=== PATIENT | female | born 1975 | race Caucasian/White ===

== ENCOUNTER 2017-01-10 11:18 | Emergency (ER) | payer SELFPAY ==
[~2017-01-10] VITALS: Ht 147.3 cm; Wt 64.9 kg
--- NOTE | 2017-01-10 11:50 | Urgent Treatment Center Report ---
History of Present Issue Date/Time Seen by Provider 01/10/17 1149 Visit Reason Pt arrived:Walked Presenting Problem:PT STATES NECK PAIN ON LEFT SIDE THAT RADIATES DOWN BACK AND INTO HEAD X1 WEEK. STATES HISTORY OF BULGING DISC TO NECK Location if Accident: Onset of symptoms date/time:/ or onset unknown for:MEDICAL HX UNKNOWN Have you (or family members/close friends) recently traveled outside the [facility]? N If Yes, where/when: Have you had exposure to infectious disease within the past month? TB? Other? Specify: c/o chronic neck pain. "feels like someone is going to sqeeze my head off". requesting refill of baclofen and tramadol. moved to [place] 2 weeks ago from [place]. Has not tried to establish primary care. Denies new symptoms and no new injury. "I already know what this is. I don't need you doing xrays. I have two disc pushing one way and another pushing the other way". pt reports she was being treated with ibuprofen 600mg, tramadol and baclofen prior to leaving [place]. Has ibuprofen at home "so I am not needing you to give me that". Has no baclofen or tramadol remaining. Has been without medication approx one week and pain worse "about that same amount of time". reporting "at one time they did epidurals but that didn't help". Reporting nothing helps but that and is not interested in any other treatment today. Source patient Exam Limitations clinical condition (pain) ALLERGIES Coded Allergies: No Known Allergies (01/10/17) History Medical History General CAD? No Angina: No OK: No Hypertension? No Hyperlipidemia? No CHF? No DVT? No PE? No COPD? No Asthma? No Anemia? No GERD? No Gastric ulcers? No GI Bleed? No Hernia? No Thyroid Problems? No Hypothyroidism? No CVA? No Seizures? No Diabetes? No Renal Insuffiency? No UTI? No Stones? No BPH? No GB Disease: No Nephritic Syndrome? No Asplenia? No Hepatitis? No Sickle Cell Disease? No Arthritis? Yes Migraines? No Cataracts? No Glaucoma? No MRSA? No HIV? No TB? No Anxiety? No Depression? No Cancer? No Immunization HX DT/Tetanus 1-4 Years Ago Surgical Hx Previous Surgery?Y [employer] Hx LMP Now Social History Smoking Hx Smoker: Current Every Day Smoker Tobacco: Yes Type Cigarettes Alcohol Alcohol: No Review of Systems All Other Systems Reviewed and Negative Constitutional denies fever, denies malaise Eyes denies blurred vision Cardiovascular denies chest pain Musculoskeletal see HPI, denies other (weakness in arms) Skin denies change in color, denies lesions, lumps ("knot on my neck"), denies rash Psychiatric/Neurological denies numbness, denies tingling Physical Exam Vital Signs Vital Signs Date Time Temp Pulse Resp B/P Pulse O2 O2 Flow FiO2 Ox Delivery Rate 01/10 1215 98.1 70 20 147/95 100 01/10 1134 98.1 70 20 147/95 100 General Appearance no apparent distress, dishelved appearance Neck supple, limited range of motion (all directions), marked tenderness with minimal palpation any area cervical spine and left side of neck, wincing, pulling away slightly, no sign of pain while distracted in conversation. Respiratory Status No: respiratory distress, productive cough, non productive cough. Cardiovascular no peripheral edema Back gait normal Neurologic no motor/sensory deficits, oriented x 3 Mental status normal mood/affect Skin intact, normal color, warm/dry Medical Decision Making LABS/Meds/Orders Pt receiving controlled substance in ED? No Departure Departure Time of Disposition 1210 Disposition DC Home or Self Care(routine) Clinical Impression Primary Impression: Chronic neck pain Secondary Impressions: Encounter for medication refill Condition STABLE Referrals NO REFERRAL I understand you do not have a doctor since you just moved here two weeks ago so we have provided you with a list of providers accepting patients in [place]. i do not have a list of providers for [place]. You could call your insurance and see who is in network in [place] then call and see if they are accepting new patients. I would encourage you find him a new primary care provider and make an appt TE[facility] as it can take weeks to get a new patient appointment. In the meantime , follow up in the clinic or ER for new, worsening or persistent symptoms. Patient Instructions DI for Chronic Neck Pain Additional Instructions We do not treat chronic pain here there fore I am not able to refill your requested medications. It is important you establish with a primary care as soon as possible. I understand you already have ibuprofen at home. Take 600-800mg every 6 hours with food as needed for pain. I understand you do not want steroids due to side effects Discharge Counseling Counseled pt/family regarding diagnosis, medications/RX, home care, follow up needs at [phone]
[2017-01-10 12:15] VITALS: BP 147/95
== END 2017-01-10 12:18 | disposition home or self-care (01) ==
LOC: UTC 11:18
DX: M54.2 Cervicalgia (principal); G89.29 Other chronic pain; Z76.0 Encounter for issue of repeat prescription; F17.210 Nicotine dependence, cigarettes, uncomplicated